=== PATIENT | male | born 1995 | race Caucasian/White ===

== ENCOUNTER → 2023-09-17 14:47 | Outpatient (REF) | payer OTHER, SELFPAY | LOC: RAD 14:47 | PROVIDERS: ATTENDING PHYSICIAN Family Medicine | DX: M79.604 Pain in right leg (principal); S80.11XA Contusion of right lower leg, initial encounter | CPT/HCPCS: 93971 ==

== ENCOUNTER → 2024-10-27 15:15 | Outpatient (REF) | payer OTHER, SELFPAY | LOC: HWRAD 15:15 | PROVIDERS: ATTENDING PHYSICIAN Family Medicine; FAMILY PHYSICIAN Family Medicine | DX: K40.30 Unilateral inguinal hernia, with obstruction, without gangrene, not specified as recurrent (principal) | CPT/HCPCS: 76882 ==